=== PATIENT | male | born 1955 | race Caucasian/White ===

== ENCOUNTER → 2020-06-12 | Outpatient (CLI) | payer MEDICARE ==
--- NOTE | 2020-06-12 12:00 | ECHOF ---
Referral Reason:R00.1 Bradycardia I10 Essential (primary)... MEASUREMENTS -------- HEIGHT: 175.3 cm WEIGHT: 83.9 kg BP: 130/80 RVIDd: 3.5 cm (< 3.3) IVSd: 1.3 cm (0.6 - 1.1) LVIDd: 3.8 cm (3.9 - 5.3) LVPWd: 1.2 cm (0.6 - 1.1) IVSs: 1.7 cm LVIDs: 2.7 cm LVPWs: 2.0 cm LA Diam: 3.3 cm (2.7 - 3.8) LAESV Index (A-L): 22.86 ml/m Ao Diam: 4.0 cm (2.0 - 3.7) AV Cusp: 2.3 cm (1.5 - 2.6) MV EXCURSION: 13.341 mm (> 18.000) MV EF SLOPE: 37 mm/s (70 - 150) EPSS: 0.9 cm MV E Nate: 0.76 m/s MV DecT: 342 ms MV A Nate: 0.96 m/s MV E/A Ratio: 0.79 RAP: 5.00 mmHg RVSP: 25.72 mmHg FINDINGS -------- Sinus rhythm. This was a technically good study. The left ventricular size is normal. There is mild concentric left ventricular hypertrophy. Overa ll left ventricular systolic function is normal with, an EF between 60 - 65 %. The right ventricle is mildly enlarged. Normal LA size by volume 22+/-6 ml/m2. The right atrium is normal in size. Interatrial and interventricular septum intact. The aortic valve is trileaflet and appears structurally normal. The mitral valve is normal. Mild tricuspid regurgitation present. Right ventricular systolic pressure is normal at < 35 mmHg. Trace/mild (physiologic) pulmonic regurgitation. The aortic root is dilated measuring 4.0cm. IVC Not well visulized. There is no pericardial effusion. CONCLUSIONS -------- 1. The left ventricular size is normal. 2. There is mild concentric left ventricular hypertrophy. 3. Overall left ventricular systolic function is normal with, an EF between 60 - 65 %. 4. The right ventricle is mildly enlarged. 5. Normal LA size by volume 22+/-6 ml/m2. 6. The aortic valve is trileaflet and appears structurally normal. 7. Mild tricuspid regurgitation present. 8. Trace/mild (physiologic) pulmonic regurgitation. 9. The aortic root is dilated measuring 4.0cm. 10. There is no pericardial effusion. [employer] SENIOR DEVELOPER: Jennifer Wade RDCS
--- NOTE | 2020-06-12 12:30 | EST ---
EXERCISE STRESS AGE: 65 SEX: M HT: 5'9" WT: 185 lbs. PROTOCOL: Girma. STAGE: 3 DURATION OF EXERCISE: 10:14 HEART RATE REST: 52 BLOOD PRESSURE REST: 130/80 MAXIMUM HEART RATE ACHIEVED: 132 MAXIMUM BLOOD PRESSURE: 185/91 85% MPHR: 132 100% MPHR: 155 METS: 11.9 INDICATIONS: Bradycardia. CLINICAL INFORMATION: Baseline EKG shows sinus bradycardia, normal axis, normal intervals. Patient exercised on Girma protocol for a total of 10 minutes achieving 11 METs, 85% of predicted maximal heart rate without chest pain or diagnostic ST-segment depression. CONCLUSIONS: 1. Good exercise tolerance. 2. Negative stress test by EKG criteria. 3. No evidence of chronotropic incompetence. MMODL / IJN: [id number] /
== END | disposition home or self-care (01) ==
LOC: RADNMMAIN 10:12
PROVIDERS: ATTEND Physician Assistant Medical
DX: I07.1 Rheumatic tricuspid insufficiency (principal); I37.1 Nonrheumatic pulmonary valve insufficiency; I77.819 Aortic ectasia, unspecified site; R00.1 Bradycardia, unspecified; I10 Essential (primary) hypertension; E78.2 Mixed hyperlipidemia
CPT/HCPCS: 93017; 93306